=== PATIENT | male | born 1965 | race Caucasian/White ===

== ENCOUNTER 2017-01-02 14:17 | Observation (INO) | payer OTHER ==
[2017-01-02] MEDS ORDERED: Diltiazem IV* 5 MG/ML 5 ML VIAL (for loading dose/IV Push) (25 MG) IV SLOW PU ONE (14:42)
[2017-01-02 14:46] LABS: Hematocrit 46 % (42-52); Hemoglobin 15.6 g/dl (14.0-18.0); Mean Corpuscular HGB Conc 34 g/dl (31-36); Mean Corpuscular Hemoglobin 30 pg (27-31); Mean Corpuscular Volume 88 fL (80-94); Mean Platelet Volume 11 um3 (7.4-10.4); Red Cell Distribution Width 13 % (10.5-15); White Blood Count 9.7 10^3/ul (3.5-10.8)
[2017-01-02] MEDS: NS 0.9% 1000 ML* 2,000 ML IV ONE ×2 (14:53→17:50)
[2017-01-02 15:00] LABS: Albumin 4.5 g/dL (3.2-5.2); BUN/Creatinine Ratio 17.2 (8-20); C Reactive Protein 8.47 mg/L (< 5.00); Calcium 9.5 mg/dL (8.6-10.3); EGFR African American 109.3 (>60); Globulin 3.9 g/dL (2-4); Magnesium 2.2 mg/dL (1.9-2.7); Potassium 3.8 mmol/L (3.5-5.0); Total Bilirubin 0.6 mg/dL (0.2-1.0); Total Protein 8.4 g/dL (6.4-8.9)
--- NOTE | 2017-01-02 15:09 | RAD ---
Indication: Tachycardia. Single frontal view of the chest performed at 1448 hours was reviewed. Comparison is made with previous exam dated May 18, 2016. No mediastinal shift is noted. Heart is of normal size and configuration. Lung turcios appear clear. IMPRESSION: NO ACTIVE CARDIOPULMONARY DISEASE IS NOTED.
[2017-01-02 15:11] LABS: Troponin I 0.01 ng/mL (<0.04)
[2017-01-02 15:36] LABS: TSH (Thyroid Stimulating Horm) 3.54 mcIU/mL (0.34-5.60)
[2017-01-02] MEDS ORDERED: Diltiazem IV VIAL* 125 MG in D5W 100 ML BAG* 100 ML IV ONE (16:29)
[2017-01-02 16:34] LABS: Urine Bilirubin Negative (Negative); Urine Glucose Negative (Negative); Urine Nitrite Negative (Negative)
--- NOTE | 2017-01-02 16:53 | ED ---
Anna Brenner Anna, scribed for Shekhar Francis MD on 01/02/17 at 1433 . Palpitations / Dysrhythmia - HPI Summary HPI Summary: Patient is a 51 y/o male coming to [facility] presenting with the sudden onset of constant palpitations that began today at 1330 while he was sitting at his desk. He had some SOB and felt as if his chest was cold. He had some lightheadedness when walking down the hallway. He denies CP, leg pain, or other pain. He took 324 mg [employer]SA [employer], which he takes daily. He denies a Hx of a fib. His history is significant for HTN, CVA, PFO. - History of Current Complaint Chief Complaint: EDDysrhythmPalp Hx Obtained From: Patient Onset/Duration: Sudden Onset, Still Present Timing: Constant Severity Initially: Moderate Severity Currently: Moderate Character: Fast Associated Signs & Symptoms: Lightheadedness, Shortness of Breath - Allergy/Home Medications Allergies/Adverse Reactions: Allergies Allergy/AdvReac Type Severity Reaction Status Date / Time Penicillins Allergy Unknown Verified 01/02/17 14:24 Reaction Details PMH/Surg Hx/FS Hx/Imm Hx Cardiovascular History: Reports: Hx Hypertension, Other Cardiovascular Problems/ Disorders - PFO closed with hardware Respiratory History: Reports: Hx Asthma - KID Denies: Hx Chronic Obstructive Pulmonary Disease (COPD) Neurological History: Reports: Hx CVA Infectious Disease History: No Infectious Disease History: Denies: Traveled Outside the [place] in Last 30 Days - Family History Known Family History: Positive: Other - Hx CVA in father - Social History Lives: With Family Alcohol Use: Rare Substance Use Type: Reports: None Smoking Status (MU): Current Every Day Smoker Amount Used/How Often: <1 PPD Review of Systems Positive: Palpitations. Negative: Chest Pain Positive: Shortness Of Breath Negative: Arthralgia, Myalgia Neurological: Other - lightheadedness All Other Systems Reviewed And Are Negative: Yes Physical Exam Triage Information Reviewed: Yes Vital Signs On Initial Exam: Initial Vitals Temp Pulse Resp BP Pulse Ox 99.4 F 145 17 184/115 96 01/02/17 14:24 01/02/17 14:24 01/02/17 14:24 01/02/17 14:24 01/02/17 14:24 Vital Signs Reviewed: Yes Appearance: Positive: Well-Appearing, No Pain Distress Skin: Positive: Warm, Skin Color Reflects Adequate Perfusion, Dry Head/Face: Positive: Normal Head/Face Inspection Eyes: Positive: EOMI, LEX ENT: Positive: Normal ENT inspection Neck: Positive: Supple, Nontender Respiratory/Lung Sounds: Positive: Clear to Auscultation, Breath Sounds Present Cardiovascular: Positive: Tachycardia, Other - regularly irregular Abdomen Description: Positive: Nontender, Soft Bowel Sounds: Positive: Present Musculoskeletal: Positive: Normal, Strength/ROM Intact Neurological: Positive: Normal, Sensory/Motor Intact, Alert, Oriented to Person Place, Time Psychiatric: Positive: Affect/Mood Appropriate Diagnostics - Vital Signs Vital Signs Temp Pulse Resp BP Pulse Ox 01/02/17 14:24 99.4 F 145 17 184/115 96 - Laboratory Lab Results: Lab Results 01/02/17 01/02/17 01/02/17 Range/Units 14:35 14:35 14:35 WBC 9.7 (3.5-10.8) 10^3/ul RBC 5.20 (4.0-5.4) 10^6/ul Hgb 15.6 (14.0-18.0) g/dl Hct 46 (42-52) % MCV 88 (80-94) fL MCH 30 (27-31) pg MCHC 34 (31-36) g/dl RDW 13 (10.5-15) % Plt Count 207 (150-450) 10^3/ul MPV 11 H (7.4-10.4) um3 Neut % (Auto) 68.2 (38-83) % Lymph % (Auto) 22.2 L (25-47) % [place] % (Auto) 5.9 (1-9) % Eos % (Auto) 2.5 (0-6) % Baso % (Auto) 1.2 (0-2) % Absolute Neuts (auto) 6.6 (1.5-7.7) 10^3/ul Absolute Lymphs (auto) 2.2 (1.0-4.8) 10^3/ul Absolute Monos (auto) 0.6 (0-0.8) 10^3/ul Absolute Eos (auto) 0.2 (0-0.6) 10^3/ul Absolute Basos (auto) 0.1 (0-0.2) 10^3/ul Absolute Nucleated RBC 0.01 10^3/ul Nucleated RBC % 0.1 INR (Anticoag Therapy) 0.96 (0.89-1.11) APTT 32.1 (26.0-36.3) seconds D-Dimer, Quantitative < 200 (Less Than 230) ng/mL Sodium 138 (133-145) mmol/L Potassium 3.8 (3.5-5.0) mmol/L Chloride 104 (101-111) mmol/L Carbon Dioxide 26 (22-32) mmol/L Anion Gap 8 (2-11) mmol/L BUN 16 (6-24) mg/dL Creatinine 0.93 (0.67-1.17) mg/dL Est GFR ( Amer) 109.3 (>60) Est GFR (Non-Af Amer) 85.0 (>60) BUN/Creatinine Ratio 17.2 (8-20) Glucose 128 H (70-100) mg/dL Lactic Acid (0.5-2.0) mmol/L Calcium 9.5 (8.6-10.3) mg/dL Magnesium 2.2 (1.9-2.7) mg/dL Total Bilirubin 0.60 (0.2-1.0) mg/dL AST 28 (13-39) U/L ALT 27 (7-52) U/L Alkaline Phosphatase 81 (34-104) U/L Total Creatine Kinase 257 H (10-223) U/L CK-MB (CK-2) 7.5 H (0.6-6.3) ng/mL Troponin I 0.01 (<0.04) ng/mL C-Reactive Protein 8.47 H (< 5.00) mg/L B-Natriuretic Peptide ( - 100) pg/mL Total Protein 8.4 (6.4-8.9) g/dL Albumin 4.5 (3.2-5.2) g/dL Globulin 3.9 (2-4) g/dL Albumin/Globulin Ratio 1.2 (1-3) Lipase 37 (11.0-82.0) U/L TSH 3.54 (0.34-5.60) mcIU/mL Urine Color Urine Appearance Urine pH (5-9) Ur Specific [place] (1.010-1.030) Urine Protein (Negative) Urine Ketones (Negative) Urine Blood (Negative) Urine Nitrate (Negative) Urine Bilirubin (Negative) Urine Urobilinogen (Negative) Ur Leukocyte Esterase (Negative) Urine Glucose (Negative) 01/02/17 01/02/17 01/02/17 Range/Units 14:35 14:35 16:15 WBC (3.5-10.8) 10^3/ul RBC (4.0-5.4) 10^6/ul Hgb (14.0-18.0) g/dl Hct (42-52) % MCV (80-94) fL MCH (27-31) pg MCHC (31-36) g/dl RDW (10.5-15) % Plt Count (150-450) 10^3/ul MPV (7.4-10.4) um3 Neut % (Auto) (38-83) % Lymph % (Auto) (25-47) % [place] % (Auto) (1-9) % Eos % (Auto) (0-6) % Baso % (Auto) (0-2) % Absolute Neuts (auto) (1.5-7.7) 10^3/ul Absolute Lymphs (auto) (1.0-4.8) 10^3/ul Absolute Monos (auto) (0-0.8) 10^3/ul Absolute Eos (auto) (0-0.6) 10^3/ul Absolute Basos (auto) (0-0.2) 10^3/ul Absolute Nucleated RBC 10^3/ul Nucleated RBC % INR (Anticoag Therapy) (0.89-1.11) APTT (26.0-36.3) seconds D-Dimer, Quantitative (Less Than 230) ng/mL Sodium (133-145) mmol/L Potassium (3.5-5.0) mmol/L Chloride (101-111) mmol/L Carbon Dioxide (22-32) mmol/L Anion Gap (2-11) mmol/L BUN (6-24) mg/dL Creatinine (0.67-1.17) mg/dL Est GFR ( Amer) (>60) Est GFR (Non-Af Amer) (>60) BUN/Creatinine Ratio (8-20) Glucose (70-100) mg/dL Lactic Acid 1.3 (0.5-2.0) mmol/L Calcium (8.6-10.3) mg/dL Magnesium (1.9-2.7) mg/dL Total Bilirubin (0.2-1.0) mg/dL AST (13-39) U/L ALT (7-52) U/L Alkaline Phosphatase (34-104) U/L Total Creatine Kinase (10-223) U/L CK-MB (CK-2) (0.6-6.3) ng/mL Troponin I (<0.04) ng/mL C-Reactive Protein (< 5.00) mg/L B-Natriuretic Peptide 65 ( - 100) pg/mL Total Protein (6.4-8.9) g/dL Albumin (3.2-5.2) g/dL Globulin (2-4) g/dL Albumin/Globulin Ratio (1-3) Lipase (11.0-82.0) U/L TSH (0.34-5.60) mcIU/mL Urine Color Straw Urine Appearance Clear Urine pH 8.0 (5-9) Ur Specific [place] 1.003 L (1.010-1.030) Urine Protein Negative (Negative) Urine Ketones Negative (Negative) Urine Blood Negative (Negative) Urine Nitrate Negative (Negative) Urine Bilirubin Negative (Negative) Urine Urobilinogen Negative (Negative) Ur Leukocyte Esterase Negative (Negative) Urine Glucose Negative (Negative) Result Diagrams: 01/02/17 14:35 01/02/17 14:35 Lab Statement: Any lab studies that have been ordered have been reviewed, and results considered in the medical decision making process. - Radiology CXR Xray Interpretation: No Acute Changes Radiology Interpretation Completed By: Radiologist - IMPRESSION: NO ACTIVE CARDIOPULMONARY DISEASE IS NOTED. - EKG 1420 Cardiac Rate: Tachycardia - 155 bpm EKG Rhythm: Atrial Fibrillation - Rapid ST Segment: Normal Ectopy: None Re-Evaluation - Re-Evaluation First Eval Re-Evaluation Time: 16:43 Comment: Discussed results and plan of care with patient. Patient agrees with plan. Course/Dx - Course Assessment/Plan: WELL IN ED. ADMIT HOSPITALIST STABLE. CRITICAL CARE TIME LESS THAN 30 MINUTES. - Diagnoses Provider Diagnoses: New onset a-fib - Physician Notifications Discussed Care Of Patient With: Dr. Masterson (hospitalist) at 1630. Accepts patient for admission. Discharge - Discharge Plan Condition: Stable Disposition: ADMITTED TO [facility] Referrals: Gray Mays MD [Primary Care Provider] - The documentation as recorded by the Anna bay Anna accurately reflects the service I personally performed and the decisions made by me, Shekhar Francis MD.
[2017-01-02] MEDS ORDERED: Diltiazem DRIP* 100 MG/100 ML ADDV.BAG IVPB ONE (18:00)
[2017-01-02] MEDS ORDERED: Rivaroxaban TAB(*) 20 MG TAB PO SCH (20:00)
[2017-01-02] MEDS ORDERED: Atorvastatin* 20 MG TAB PO SCH (20:00)
--- NOTE | 2017-01-02 20:15 | HP ---
HISTORY AND PHYSICAL: DATE OF ADMISSION: 01/02/17 PRIMARY CARE PHYSICIAN: Gray Mays MD ATTENDING PHYSICIAN: Ovidio Maynard MD* (dictated by Nancy Hodges NP) CHIEF COMPLAINT: Palpitations. HISTORY OF PRESENT ILLNESS: Mr. Gaffney is a 51-year-old male with past medical history significant for hypertension, cerebrovascular accident who presents to the emergency room today with complaints of sudden onset of palpitations while sitting at this desk at work. The patient reports that after 10 minutes of palpitations, he decided to get up and go for a walk. During his walk he noticed shortness of breath and what he describes as chest coldness, but denies chest pain. He also noticed that he was lightheaded while he was walking. The patient denies any recent fever, chills, chest pain, nausea, vomiting. The patient denies excessive caffeine intake. He takes aspirin daily and had taken a dose of aspirin today prior to his arrival at the emergency room. The patient called his primary care provider who recommended that he present to the emergency room for further evaluation of his symptoms. While in the emergency room, the patient had an EKG showing atrial fibrillation with a rate of 155. The patient received a bolus of Cardizem and his rate dropped down to the 80s to 100s. Hospitalists were asked to evaluate the patient for admission. PAST MEDICAL HISTORY: 1. Hypertension. 2. Cerebrovascular accident. 3. Asthma as a child. 4. PFO. PAST SURGICAL HISTORY: 1. Status post closure of PFO. 2. Status post appendectomy. HOME MEDICATIONS: Include: 1. Multivitamin 1 tablet oral daily. 2. Lisinopril 20 mg oral daily. 3. Aspirin 325 mg oral daily. 4. Simvastatin 40 mg oral daily. ALLERGIES: PENICILLIN. FAMILY HISTORY: The patient reports family history of coronary artery disease in his father who had NH in his 50s and a brother who had history of atrial fibrillation in his 50s and is status post an ablation. The patient denies any family history of diabetes mellitus. The patient's mother had a history of breast cancer in addition to maternal aunt with breast cancer and a maternal uncle with an unknown cancer. SOCIAL HISTORY: The patient is a former smoker. He quit smoking 27 years ago. Prior to that he smoked 2 packs a day for 20 years. He occasionally drinks alcoholic beverages. He denies recreational drug use. He works full-time. He is and his , Kiki Gaffney, will be his surrogate decision maker in the event he is unable to make decisions for himself. REVIEW OF SYSTEMS: I performed a 14-point review of systems. All the pertinent positives and negatives are mentioned in the history of present illness. The remaining review of systems is negative. PHYSICAL EXAMINATION GENERAL APPEARANCE: The patient is alert and pleasant, appears to be in no acute distress. VITAL SIGNS: Temperature 99.4, heart rate 58, respiratory rate 18, O2 sat 96% on room air, blood pressure 126/59. HEENT: Normocephalic, atraumatic. Pupils are equal and reactive to light. Extraocular movements are intact. NECK: Supple. There is no lymphadenopathy noted. RESPIRATORY: There is no accessory muscle use and the lungs are clear to auscultation, bilaterally. CARDIOVASCULAR: Regular rate and rhythm. S1 and S2 present. There are no murmurs, rubs, or gallops heard. ABDOMEN: Soft, nontender, and nondistended. There are bowel sounds present x4. EXTREMITIES: There is no lower extremity edema. DP and PT pulses are 2+ and symmetric. MUSCULOSKELETAL: There is no clubbing or cyanosis noted. The patient exhibits good strength in all extremities. NEUROLOGICAL: The patient is alert and oriented x4. Cranial nerves II through XII are grossly intact. PSYCHOLOGICAL: The patient is calm and cooperative. SKIN: There are no rashes or abnormalities seen. DIAGNOSTIC STUDIES/LABORATORY DATA: Sodium 138, potassium 3.8, chloride 104, CO2 26, BUN 16, creatinine 0.93, glucose 128. White blood cell count 9.7, hemoglobin 15.6, hematocrit 46 and platelet count 206. INR 0.96. CK-MB 7.5, CK 257, troponin 0.01, CRP 8.47 and TSH 3.54. Urinalysis negative. EKG from 01/02/17 at 1420 shows an atrial fibrillation with rate of 55. Repeat EKG from 173 shows normal sinus rhythm with rate of 59. The patient has T wave inversion in lead 3 and a flat T wave in aVF. This is consistent to previous EKGs from 05/17/16, at which time the patient was in sinus rhythm with rate of 62. Chest x-ray from today. Radiologist's impression: No active cardiopulmonary disease. IMPRESSION: Mr. Gaffney is a 51-year-old male with past medical history significant for cerebrovascular accident and hypertension who presents to the emergency room today for palpitations and was found to be in atrial fibrillation with a rapid rate. He will be admitted as an observation for new onset atrial fibrillation. ASSESSMENT: 1. New onset atrial fibrillation. While in the emergency room, the patient converted into normal sinus rhythm with a slightly bradycardic rate in the 50s to 60s. For now, we will hold on giving the patient any further medications. We did discuss with the patient that his CHADS-VASC score is 3 points and that he should be placed on anticoagulation. At this time, the patient is thinking about which form of anticoagulation he would like to take, and I will discuss further with him later today and start him on anticoagulation therapy. We are going to monitor the patient on telemetry overnight. 2. Hypertension. The patient was hypertensive upon arrival to the emergency room with blood pressure of 184/115. The patient states that he takes his blood pressure medicine at night, he is currently systolically in the 120s to 130s. We will monitor his hypertension while he is here. For now, he will be continued on his lisinopril. 3. History of cerebrovascular accident. The patient will be continued on simvastatin. 4. Fluids, electrolytes, and nutrition. He will be on heart healthy diet. 5. Code status. Full code. 6. DVT prophylaxis. The patient is at moderate risk and will be placed on anticoagulation, most likely Xarelto. 7. Disposition: Observation. TIME SPENT: Time for this admission was 60 minutes, 35 minutes were spent with the patient discussing medications, past medical history, and events leading up to his arrival today and performing the physical examination. The case has been reviewed with the attending, Dr. Maynard, who agrees with the plan of care. Reviewed by ROBERT JACKSON 01/03/17 1416 CC: Gray Mays MD* [id number]/[facility] #: [id number] JAKE
[2017-01-02] MEDS ORDERED: Lisinopril TAB* 10 MG PO SCH (21:00)
[2017-01-03] MEDS ORDERED: Lisinopril TAB* 10 MG PO SCH (09:00)
[2017-01-03] MEDS ORDERED: Multivitamins/Minerals TAB PO SCH (09:00)
[2017-01-03 09:51] VITALS: BP 127/65
--- NOTE | 2017-01-03 11:08 | PN ---
Subjective Date of Service: 01/03/17 Interval History: Patient seen and examined at bedside. Pt states that he is feeling well this morning. Reports one episode of palpitations that lasted for a few minutes earlier this AM, he noted his pulse to be around 80's. Denies fever, chills, shortness of breath, chest discomfort, N/V/D. Tele: Sinus hammad, rate 40-60's. 1 3 second episode of increased heart rate to 120's. Family History: Unchanged from Admission Social History: Unchanged from Admission Past Medical History: Unchanged from Admission Objective Active Medications: Atorvastatin Calcium (Lipitor*) 20 mg PO QPM JARETT Lisinopril (Prinivil Tab*) 20 mg PO 2100 [facility] Multivitamins/Minerals (Theragran/Minerals Tab*) 1 tab PO DAILY JARETT Rivaroxaban (Xarelto (*)) 20 mg PO 1700 [facility] Vital Signs 01/02/17 01/02/17 01/02/17 17:30 18:00 18:17 Temperature 97.6 F Pulse Rate 59 63 65 Respiratory 16 Rate Blood Pressure 126/59 112/48 147/67 (mmHg) O2 Sat by Pulse 98 97 99 Oximetry 01/02/17 01/03/17 01/03/17 23:34 00:42 03:45 Temperature 97.9 F 97.9 F 97.7 F Pulse Rate 54 54 49 Respiratory 16 16 16 Rate Blood Pressure 116/50 116/50 121/62 (mmHg) O2 Sat by Pulse 98 98 100 Oximetry 01/03/17 01/03/17 07:27 07:40 Temperature 97.4 F Pulse Rate 51 Respiratory 20 14 Rate Blood Pressure 127/65 (mmHg) O2 Sat by Pulse 97 Oximetry Oxygen Devices in Use Now: None Appearance: NAD, sitting up in bed Eyes: No Scleral Icterus, PERRLA Ears/Nose/Mouth/Throat: Mucous Membranes Moist Respiratory: Symmetrical Chest Expansion and Respiratory Effort, Clear to Auscultation Cardiovascular: NL Sounds; No Murmurs; No JVD, RRR Abdominal: NL Sounds; No Tenderness; No Distention Extremities: No Edema Skin: No Rash or Ulcers Neurological: Alert and Oriented x 3, NL Muscle Strength and Tone Lines/Tubes/Other Access: Clean, Dry and Intact Peripheral IV - site benign Nutrition: Taking PO's Result Diagrams: 01/02/17 14:35 01/02/17 14:35 Additional Lab and Data: Assess/Plan/Problems-Billing Assessment: Mr. Gaffney is a 51 yo male with PMH significant for HTN, CVA, PFO s/p closure and obesity who presented to the emergency room for palpitations and was found to be in afib with a rapid rate. - Patient Problems (1) New onset atrial fibrillation Code(s): I48.91 - UNSPECIFIED ATRIAL FIBRILLATION SNOMED Code(s): 51766789 Comment: - Converted to Sinus hammad last night after a cardizem bolus - Continue Xarelto (2) HTN (hypertension) Code(s): I10 - ESSENTIAL (PRIMARY) HYPERTENSION SNOMED Code(s): 84164746 Comment: - Normotensive today - Continue Lisinopril (3) History of CVA (cerebrovascular accident) Code(s): Z86.73 - PRSNL HX OF TIA (TIA), AND CEREB INFRC W/O RESID DEFICITS SNOMED Code(s): 894231154 Comment: - Continue Simvastatin (4) Obesity Code(s): E66.9 - OBESITY, UNSPECIFIED SNOMED Code(s): 947561237 Comment: - BMI 44 - May benefit from a [facility] referral (5) DVT prophylaxis Code(s): SRK8552 - SNOMED Code(s): 932345138 Comment: - Xarelto (6) Full code status Code(s): Z78.9 - OTHER SPECIFIED HEALTH STATUS SNOMED Code(s): 892827344 Status and Disposition: OBV. Stable for discharge to home.
--- NOTE | 2017-01-04 03:49 | DS ---
DISCHARGE SUMMARY: DATE OF ADMISSION: 01/02/17 DATE OF DISCHARGE: 01/03/17 ATTENDING PHYSICIAN: Dr. Jann Magaña* (dictated by Caren Ireland NP) PRIMARY CARE PROVIDER: Dr. Gray Mays. PRIMARY DIAGNOSIS: New-onset atrial fibrillation. SECONDARY DIAGNOSES: 1. Hypertension. 2. History of cerebrovascular accident. 3. Patent foramen ovale, status post closure. STUDIES WHILE IN THE HOSPITAL: Chest x-ray on 01/02/17. Radiologist's impression: No active cardiopulmonary disease. DISCHARGE MEDICATIONS: New home medications: 1. Xarelto 20 mg oral daily. Continued home medications: 1. Lisinopril 20 mg oral daily. 2. Multivitamin 1 tablet oral daily. 3. Simvastatin 40 mg oral every evening. Discontinued medications: 1. Aspirin. HISTORY OF PRESENT ILLNESS/HOSPITAL COURSE: Mr. Gaffney is a 51-year-old male with past medical history significant for hypertension, cerebrovascular accident who presented to the emergency room with complaints of sudden onset of palpitations with associated shortness of breath and lightheadedness. The patient decided to present to the emergency room for further evaluation of his symptoms. While in the emergency room, the patient had an EKG showing an atrial fibrillation with a rate of 155. The patient received a bolus of Cardizem and his rate dropped down to the 80s to 100s. During the patient's time in the emergency room, he spontaneously converted back to sinus bradycardic rhythm with rates in the 50s to 60s. Hospitalists were asked to evaluate the patient for admission. While in the hospital, the patient continued to remain in a sinus bradycardia with heart rates in the high 40s to 60s. The patient was noted to have a short 3-second burst of approximately 120 beats and then quickly changed back to his sinus hammad rhythm. The patient's CHADS-VASC score is 3, so it was recommended that the patient be started on oral anticoagulation. After discussion with the patient, he opted for Xarelto. The patient was started on Xarelto. Mr. Gaffney is stable for discharge to home today. Vital signs are as follows: Temperature 97.4, heart rate 51, respiratory 14, O2 sat 97% on room air, blood pressure 127/65. DISCHARGE PLAN: Mr. Gaffney will be discharged to home. Activity as tolerated. He should on a heart-healthy diet. As far as his new-onset atrial fibrillation, he has been started on Xarelto. For the patient's hypertension, he will be continued on his home lisinopril. For the patient's secondary stroke prevention, he should be continued on his simvastatin. The patient has been instructed to follow up with his primary care provider, Dr. Gray Mays , and he has an appointment for 01/10/17, at 1:20 p.m. The patient has been asked to avoid excessive caffeine intake. The patient may benefit from an outpatient consultation with [facility] to assist with weight management. I also recommend the patient be considered for sleep study to rule out sleep apnea in the outpatient setting. The patient has been instructed to return to the emergency room for chest pain or shortness of breath. This is a summarized report of a complex medical history and hospital stay. For further details, please see the entire medical record. TIME SPENT: Time for this discharge was 50 minutes and 25 minutes were spent face- to-face with the patient discussing discharge plans and instructions. CONDITION ON DISCHARGE: Stable. CAREN IRELAND NP CC: Dr. Gray Mays * [id number]/[facility] #: [id number] JAKE
== END 2017-01-03 13:56 | disposition home or self-care (01) ==
LOC: ED 14:17 → MEDTELE 17:15
PROVIDERS: ADMIT Internal Medicine; ATTEND Hospitalist
DX: I48.91 Unspecified atrial fibrillation (principal); I10 Essential (primary) hypertension; Z86.73 Personal history of transient ischemic attack (TIA), and cerebral infarction without residual deficits; Z79.82 Long term (current) use of aspirin; Z88.0 Allergy status to penicillin; Z87.891 Personal history of nicotine dependence; E66.9 Obesity, unspecified; Z68.41 Body mass index [BMI] 40.0-44.9, adult
CPT/HCPCS: 36415; 71010; 80053; 81003; 82550; 82553; 83605; 83690; 83735; 83880; 84443; 84484; 85025; 85379; 85610; 85730; 86140; 93005; 96374; 99284; A9270-GY; G0378